=== PATIENT | male | born 1945 | race Caucasian/White ===

== ENCOUNTER → 2017-11-09 | Outpatient (CLI) | payer MEDICARE, OTHER | LOC: M ST 13:29 | DX: R13.10 Dysphagia, unspecified (principal) | CPT/HCPCS: 74230 ==

== ENCOUNTER 2017-11-21 16:10 | Outpatient (RCR) | payer MEDICARE, OTHER | END 2017-12-16 | LOC: M ST 16:10 | DX: R13.10 Dysphagia, unspecified (principal) | CPT/HCPCS: 92610 ==

== ENCOUNTER → 2017-12-01 | Outpatient (REF) | payer MEDICARE, OTHER ==
[2017-12-01 20:08] LABS: APPEARANCE, URINE CLOUDY (CLEAR); BACTERIA, URINE AUTO 3+ (NEGATIVE); BILIRUBIN, URINE AUTO NEGATIVE (NEGATIVE); BLOOD, URINE BLOOD 1+ (NEGATIVE); COLOR, URINE YELLOW (YELLOW); GLUCOSE, URINE (UA) AUTO NEGATIVE (NEGATIVE); KETONE, URINE AUTO NEGATIVE (NEGATIVE); LEUKOCYTE ESTERASE, URINE AUTO 3+ (NEGATIVE); NITRITE, URINE AUTO NEGATIVE (NEGATIVE); PROTEIN, URINE AUTO NEGATIVE (NEGATIVE); RBC, URINE AUTO 8 /HPF (0-3); SPECIFIC GRAVITY URINE AUTO 1.014 (1.002-1.035); SQUAMOUS EPITHELIAL CELL UR AU 0 /HPF (0-6); UROBILINOGEN, URINE AUTO 0.2 mg/dL (0.0-2.0); WBC, URINE AUTO 170 /HPF (0-3)
== END ==
LOC: M SFHCADAM 16:17
DX: Z87.438 Personal history of other diseases of male genital organs (principal); Z23 Encounter for immunization
CPT/HCPCS: 81001

== ENCOUNTER → 2017-12-06 | Outpatient (REF) | payer MEDICARE, OTHER | LOC: M SFHCADAM 08:05 | DX: R82.90 Unspecified abnormal findings in urine (principal) | CPT/HCPCS: 87086 ==

== ENCOUNTER 2018-01-20 12:11 | Day surgery (SDC) | payer MEDICARE, OTHER ==
[2018-01-20] MEDS: NS 1,000 ML IV (07:00)
[~2018-01-20 12:11] MED LIST: LIDOCAINE 2% INJ 100 MG/5 ML SDV (FOR ANES.) As Ordered; PROPOFOL 200 MG/20 ML VIAL As Ordered
== END 2018-01-20 15:40 | disposition home or self-care (01) ==
LOC: M OPP 12:11
DX: R13.10 Dysphagia, unspecified (principal); K22.2 Esophageal obstruction; K21.9 Gastro-esophageal reflux disease without esophagitis; R12 Heartburn; N40.1 Benign prostatic hyperplasia with lower urinary tract symptoms; Z79.899 Other long term (current) drug therapy; Z80.9 Family history of malignant neoplasm, unspecified
CPT/HCPCS: 43235